=== PATIENT | female | born 1945 | race Caucasian/White ===

== ENCOUNTER 2016-05-12 21:20 | Emergency (ER) | payer MEDICARE, OTHER ==
[~2016-05-12] VITALS: Ht 147.3 cm; Wt 91.2 kg
[2016-05-12] MEDS ORDERED: CYCL5TAB PO (21:53)
--- NOTE | 2016-05-12 21:53 | PHYS DOC ---
Past Medical History Past Medical History: Arthritis, Depression, Diabetes-Type II, High Cholesterol , Hypertension Past Surgical History: , Tonsillectomy Additional Past Surgical Histo: cysy removal, rt foot Alcohol Use: None Drug Use: None Adult General Chief Complaint Chief Complaint: WEAKNESS/GENERALIZED HPI HPI Patient is a 71 year old female who presents with spasm and cramp-like left hip pain that started shortly prior to arrival after coughing fit while eating dinner. Had a coughing fit that lasted approximately 15 minutes, resulting in her left lateral hip hurting very bad. States she required help to ambulate after this. Her pain is intermittent with use of left hip. She denies back pain , numbness, tingling, weakness, abdominal pain, injury. Review of Systems Review of Systems Constitutional: Denies fever or chills [] Eyes: Denies change in visual acuity, redness, or eye pain [] HENT: Denies nasal congestion or sore throat [] Respiratory: Denies cough or shortness of breath [] Cardiovascular: No additional information not addressed in HPI [] GI: Denies abdominal pain, nausea, vomiting, bloody stools or diarrhea [] : Denies dysuria or hematuria [] Musculoskeletal: Denies back pain [] Integument: Denies rash or skin lesions [] Neurologic: Denies headache, focal weakness or sensory changes [] Endocrine: Denies polyuria or polydipsia [] Current Medications Current Medications Current Medications Medications (Trade) Dose Ordered Sig/Erlinda Start Time Stop Time Status Last Admin Dose Admin Dexamethasone Sodium Phosphate (Decadron) 10 mg 1X ONCE 05/12/16 22:00 05/12/16 22:01 DC 05/12/16 22:11 10 MG Allergies Allergies Allergies Coded Allergies Type Severity Reaction Last Updated Verified Sulfa (Sulfonamide Antibiotics) Allergy Unknown 05/12/16 Yes Physical Exam Physical Exam Constitutional: Well developed, well nourished, no acute distress, non-toxic appearance. [] HENT: Normocephalic, atraumatic, bilateral external ears normal, oropharynx moist, nose normal. [] Eyes: PERRLA, EOMI. [] Neck: Normal range of motion, supple. [] Cardiovascular:Heart rate regular rhythm [] Lungs & Thorax: Bilateral breath sounds clear to auscultation [] Abdomen: Bowel sounds normal, soft, no tenderness. [] Skin: Warm, dry, no erythema, no rash. [] Back: Nontender with normal ROM. [] Extremities: No tenderness, ROM intact, no edema, equal dp pulses, sensation intact to light touch. [] Neurologic: Alert and oriented X 3, normal motor function, normal sensory function, no focal deficits noted. [] Psychologic: Affect normal, judgement normal, mood normal. [] Current Patient Data Vital Signs Vital Signs Date Time Temp Pulse Resp B/P Pulse Ox O2 Delivery O2 Flow Rate FiO2 05/12/16 22:11 78 16 120/58 94 Room Air 05/12/16 21:34 98.2 98.2 Course & Med Decision Making Course & Med Decision Making Appears well on exam. Discussed symptomatic care. Return precautions given. She and daughter understand and agree with plan. Dragon Disclaimer Dragon Disclaimer This electronic medical record was generated, in whole or in part, using a voice recognition dictation system. Departure Departure Impression: Primary Impression: Left hip pain Disposition: HOME, SELF-CARE Condition: STABLE Referrals: DAMARIS GONZALES MD (PCP) Patient Instructions: Musculoskeletal Pain Additional Instructions: Take Tylenol as needed for pain. Take cyclobenzaprine as needed for muscle spasm. Do not drink, drive or operate heavy machinery after taking cyclobenzaprine as it may make you sleepy. Follow-up with your primary care doctor. Return for any concerns. Scripts Cyclobenzaprine Hcl 5 Mg Tablet1 Tab PO TID PRN MUSCLE SPASMS #5 TAB Prov:Kevin TROY MD 05/12/16 Kevin TROY MD May 12, 2016 21:53
[2016-05-12] MEDS ORDERED: DEXAMETHASONE SOD PHOS 20 MG/5 ML VIAL. IM ONE (22:00)
[2016-05-12 22:11] VITALS: BP 120/58
== END 2016-05-12 22:17 | disposition home or self-care (01) ==
LOC: ER 21:20
DX: M25.552 Pain in left hip (principal); M19.90 Unspecified osteoarthritis, unspecified site; E11.9 Type 2 diabetes mellitus without complications; E78.00 Pure hypercholesterolemia, unspecified; I10 Essential (primary) hypertension; Z88.2 Allergy status to sulfonamides
CPT/HCPCS: 96372; 99283; J1100